=== PATIENT | male | born 1975 | race African-American/Black ===

== ENCOUNTER 2017-05-11 13:50 | Emergency (ER) | payer MEDICAID ==
[2017-05-11 15:18] LABS: HEMATOCRIT 36.7 % (42.0-54.0); HEMOGLOBIN 12.1 g/dL (13.5-17.5); LYMPHOCYTES 15.9 % (15-50); MCH 26.1 pg (26.0-34.0); MCV 79.1 fL (80.0-100.0); MEAN PLATELET VOLUME 10.3 fL (7.4-10.4); NEUTROPHILS 63.4 % (40-80); RBC 4.64 10x6/uL (4.20-6.10); RDW 15.7 % (11.5-14.5); WBC 8.2 10x3/uL (4.8-10.8)
[2017-05-11 15:22] LABS: PLATELET COUNT 158 10x3/uL (130-400)
[2017-05-11 15:35] LABS: ALBUMIN 3.3 g/dL (3.4-5.0); BILIRUBIN - TOTAL 1.1 mg/dL (0.2-1.3); CALCIUM 8.1 mg/dL (8.5-10.1); CARBON DIOXIDE 26.7 mmol/L (21.0-32.0); CREATININE - SERUM 1.3 mg/dL (0.6-1.3); POTASSIUM - SERUM 3.7 mmol/L (3.5-5.1); PROTEIN - SERUM 9.8 g/dL (6.4-8.2)
== END 2017-05-11 17:21 | disposition home or self-care (01) ==
LOC: D.ER 13:50
PROVIDERS: Emergency Medicine
DX: J18.9 Pneumonia, unspecified organism (principal); I10 Essential (primary) hypertension

== ENCOUNTER 2017-10-05 10:50 | Emergency (ER) | payer MEDICAID | END 2017-10-05 11:59 | disposition home or self-care (01) | LOC: D.ER 10:50 | DX: R10.9 Unspecified abdominal pain (principal); I10 Essential (primary) hypertension ==

== ENCOUNTER 2018-04-26 15:51 | Emergency (ER) | payer MEDICAID ==
[~2018-04-26] VITALS: Ht 172.7 cm; Wt 119.5 kg
[2018-04-26 15:53] VITALS: Ht 172.7 cm; Wt 119.5 kg
[2018-04-26] MEDS ORDERED: PRINIVIL10 MG PO (15:56)
[2018-04-26] MEDS ORDERED: NORVASC5 MG PO (15:56)
[2018-04-26] MEDS ORDERED: PRAVACHOL20 MG PO (15:57)
[2018-04-26] MEDS ORDERED: TORADOL10 MG PO (16:58)
[2018-04-26 18:01] VITALS: BP 131/78
[2018-06-29 08:36] VITALS: Ht 172.7 cm; Wt 119.5 kg
== END 2018-04-26 18:02 | disposition home or self-care (01) ==
LOC: D.ER 15:51
DX: M25.562 Pain in left knee (principal); I10 Essential (primary) hypertension

== ENCOUNTER 2018-06-28 17:45 | Observation (INO) | payer MEDICAID ==
[~2018-06-28] VITALS: Ht 172.7 cm; Wt 113.6 kg
--- NOTE | ~2018-06-28 | OP ---
PATIENT NAME: MARIO ALBERTO CASTELLANOS MEDICAL RECORD: [id number] :[birth year] LOCATION:D.M2 D.2139 ADMISSION DATE:06/28/18 SURGEON: PEG ROOT MD DATE OF OPERATION: 06/29/2018 PROCEDURES: 1. Left heart catheterization. 2. Selective coronary angiography. 3. Left ventriculogram. INDICATION: Shortness of breath, elevated troponin, abnormal ECG. PROCEDURE IN DETAIL: After informed consent was obtained and after a detailed description of the risks, benefits as well as alternative therapies, the patient elected to proceed with angiogram and heart catheterization. The right radial area was prepped and draped in normal sterile fashion. Right radial artery was cannulated via modified Seldinger technique with placement of 5-Nigerian sheath. All catheters exchanged through this sheath. FINDINGS: Left ventriculogram was performed in standard 30-degree NAVARRETE view, reveals good cardiac wall motion throughout all segments. Overall ejection fraction estimated 60%. SELECTIVE CORONARY ANGIOGRAPHY: Left main, left anterior descending, left circumflex, right coronary artery are all smooth-walled vessels with no angiographic evidence of coronary artery disease. OVERALL IMPRESSION: 1. No angiographic evidence of coronary artery disease. 2. Normal left heart pressures. 3. Normal left ventricular systolic function, unsure the etiology of his significant shortness of breath. It is not secondary to ischemic heart disease. Evaluate echo and CT angio. TRANSINT:[id number] Voice Confirmation ID: [id number] DOCUMENT ID: [id number] PEG ROOT MD at 1950 CC: [id number] DICTATION DATE: 06/29/18 1212 INFRASTRUCTURE ARCHITECT: 06/29/18 1218 DIS IN 06/30/18 [address] [place] [address]
--- NOTE | ~2018-06-28 | HEMODYNAMI ---
PATIENT:MARIO ALBERTO CASTELLANOS MEDICAL RECORD: [id number] : 79 [facility] D.2139 [id number] ADMISSION DATE: 06/28/18 Generatedon:06/29/201812:10 Patient name: MARIO ALBERTO CASTELLANOS Patient #: [id number] SSN: : 1975 Date of study: 06/29/2018 Page: Of Hemodynamic Procedure Report Patient Data Patient Demographics Procedure consent was obtained First Name: MARIO ALBERTO Gender: Male Last Name: JASMIN : 1975 Patient #: [id number] Age: 42 year(s) Race: Black Additional ID: [id number] Contact details Address: [address] [place] [address] State: [place] City: [facility] Zip code: [address] Past Medical History Allergies: No allergy information Admission Admission Data Admission Date: 06/28/2018 Admission Time: 20:45 Room #: D.2139 Height (in.): 68 BSA: 2.29 (m2) Height (cm.): 172.72 BMI: 39.53 (kg/m2) Weight (lbs.): 260 Weight (kg.): 117.93 Procedure Procedure Types Cath Procedure Diagnostic Procedure [facility] w/Coronaries Procedure Description Procedure Date Procedure Date: 06/29/2018 Procedure Start Time: 12:02 Procedure End Time: 12:09 Procedure Staff Name Function Maycol Molina MD Performing Physician Radha Gonzalez RT Monitor Amaris Thakur RT Scrub Juan Vera RN Nurse Procedure Data Cath Procedure Fluoroscopy Diagnostic fluoroscopy Total fluoroscopy Time: 1 time: 1 min min Diagnostic fluoroscopy Total fluoroscopy dose: 476 dose: 476 mGy mGy Contrast Material Contrast Material Type Amount (ml) Isovue 300 57 Entry Location Entry Primary Successful Side Size Upsize Upsize Entry Closure Aleman ccessful Closure Location (Fr) 1 (Fr) 2 (Fr) Remarks Device Remarks Radial Right 6 Fr Mechanical TR artery Short Compression Estimated blood loss: 10 ml Diagnostic catheters Device Type Used For End Catheter Placement DIAGNOSTIC [place] 110cm 5 Procedure Fr catheter (000465) Procedure Complications No complications Procedure Medications Medication Administration Route Dosage 0.9% NaCl I.V. 100 ml/hr Oxygen etCO2 Nasal cannula 2 l/min Heparin Flush Bag added to field 1 bags (1000units/500ml NS) Lidocaine 2% added to field 20 Radial Cocktail added to field 1 syringe (Verapomil 2mg/Nitro 400mcg/Heparin 1500units) Versed I.V. 2 mg Fentanyl I.V. 100 mcg Versed I.V. 1 mg Radial Cocktail I.A. 1 syringe (Verapomil 2mg/Nitro 400mcg/Heparin 1500units) Hemodynamics Rest BSA: 2.29 (m2) O2 Consumption: Estimated: 302.15 (ml/min) O2 Consumption indexed : Estimated:131.94 (ml/min/m) Heart Rate: 96 (bpm) Snapshots Pre Cath Intra NCS Post Cath Vital Signs Time Heart Resp SPO2 etCO2 NIBP (mmHg) Rhythm Pain Sedation Rate (ipm) (%) (mmHg) Status Level (bpm) 11:19:28 100 26 93 0 153/86(111) NSR 0 (11) 10(A) , No pain 11:23:42 74 16 95 27.1 156/94(123) NSR 0 (11) 10(A) , No pain 11:28:07 74 14 94 29.4 153/74(97) NSR 0 (11) 10(A) , No pain 11:32:21 86 24 93 30.1 133/71(97) NSR 0 (11) 10(A) , No pain 11:37:13 84 24 94 29.3 130/69(89) NSR 0 (11) 10(A) , No pain 11:41:25 85 27 93 27.8 136/78(94) NSR 0 (11) 10(A) , No pain 11:45:39 78 22 95 29.3 121/68(102) NSR 0 (11) 10(A) , No pain 11:49:53 77 19 94 32.4 134/59(84) NSR 0 (11) 10(A) , No pain 11:54:11 75 20 93 33.1 119/63(89) NSR 0 (11) 10(A) , No pain 11:58:25 75 18 93 33.1 129/59(77) NSR 0 (11) 9(A) , No pain 12:02:43 75 19 93 30.8 115/55(87) NSR 0 (11) 9(A) , No pain 12:06:55 75 16 95 31.6 118/55(83) NSR 0 (11) 10(A) , No pain Medications Time Medication Route Dose Verified Delivered Reason Notes Effectiveness by by 11:25:08 0.9% NaCl I.V. 100 Juan Juan Per ml/hr Chuy Vera physician RN RN 11:25:22 Oxygen etCO2 2 l/min Juan Juan Per Nasal Chuy Vera physician cannula RN RN 11:25:48 Heparin Flush added 1 bags Juan Juan used for Bag to Chuy Vera procedure (1000units/500ml field RN RN NS) 11:25:59 Lidocaine 2% added 20ml Juan Juan for local to vial Lorigan Yancyigan anesthetic RN RN 11:26:10 Radial Cocktail added 1 Juan Juan used for (Verapomil to syringe Lorigan Yancyigan procedure 2mg/Nitro field MENENDEZ RN 400mcg/Heparin 1500units) 11:53:49 Versed I.V. 2 mg Ujan Juan for sedation Chuy Vera RN RN 11:53:58 Fentanyl I.V. 100 mcg Juan Juan for sedation Chuy Vera RN RN 12:02:10 Versed I.V. 1 mg Juan Juan for sedation Chuy Vera RN RN 12:02:46 Radial Cocktail I.A. 1 Juan Maycol for (Verapomil syringe Chuy Molina MD vasodilation 2mg/Nitro RN 400mcg/Heparin 1500units) Procedure Log Time Note 11:00:32 Radha Gonzalez RT(R) sent for patient. Start room use. 11:14:40 Time tracking: Regular hours (M-F 7:00 - 5:00) 11:14:46 Plan of Care:Hemodynamics will remain stable., Cardiac rhythm will remain stable., Comfort level will be maintained., Respiratory function will remain adequate., Patient/ family verbilizes understanding of procedure., Procedure tolerated without complication., Recovers from procedure without complications.. 11:14:58 Patient received from PCU to CCL 2 Alert and oriented. Tansferred to table in Supine position. 11:15:01 Warm blankets applied, and daniele hugger turned on for patient comfort. 11:15:01 Correct patient and procedure confirmed by team. 11:15:03 Signed procedure consent form obtained from patient. 11:15:04 ECG and BP/O2 sat monitors applied to patient. 11:15:07 Full Disclosure recording started 11:18:24 Vital chart was started 11:18:29 Baseline sample Acquired. 11:18:39 Rhythm: sinus rhythm 11:18:51 H&P Date Dictated: 06/28/2018 Within 30 days and on chart.. 11:18:53 Pre-procedure instructions explained to patient. 11:18:55 Family unavailable. 11:18:57 Patient NPO since Midnight. 11:19:05 Patient allergic to No allergy information 11:19:08 Is the patient allergic to Iodine/contrast media? No. 11:19:09 Was the patient premedicated? Yes 11:19:12 Is patient on blood thinner?No 11:19:15 Patient diabetic? No. 11:19:19 Snore? No 11:19:21 Sleep apnea? No 11:19:29 Airway obstruction? No SOB 11:19:33 Dentures? No ? 11:19:38 Patient pain scale 0/10 ?. 11:19:45 IV patent on arrival in left hand with 0.9% NaCl at O. 11:19:52 Lab results completed and on chart. 11:19:56 Right Radial & Right Groin area was prepped with chlora-prep and draped in sterile fashion 11:19:57 Alarms reviewed by R. N. 11:19:58 Sharps counted by scrub and verified by R.N. 11:19:59 Physician paged 11:21:24 Use device set Radial Dx or PCI 11:21:25 ACIST Syringe (96516) opened to sterile field. 11:21:25 Medline Cath Pack ([id number]) opened to sterile field. 11:21:26 Bag Decanter (2002) opened to sterile field. 11:21:26 DIAGNOSTIC WIRE .035 260cm J wire (184130) opened to sterile field. 11:21:28 Tegaderm 4 x 4 (1626W) opened to sterile field. 11:21:29 MBrace Wrist Support ([id number]) opened to sterile field. 11:21:30 NEEDLE Cook 21G 4cm Radial ([id number]) opened to sterile field. 11:21:33 SHEATH 6Fr Prelude Radial ([id number]) opened to sterile field. 11:25:08 0.9% NaCl 100 ml/hr I.V. was administered by Juan Vera RN; Per physician; 11:25:22 Oxygen 2 l/min etCO2 Nasal cannula was administered by Juan Vera RN; Per physician; 11:25:48 Heparin Flush Bag (1000units/500ml NS) 1 bags added to field was administered by Juan Vera RN; used for procedure; 11:25:59 Lidocaine 2% 20ml vial added to field was administered by Juan Vera RN; for local anesthetic; 11:26:10 Radial Cocktail (Verapomil 2mg/Nitro 400mcg/Heparin 1500units) 1 syringe added to field was administered by Juan Vera RN; used for procedure; 11:27:53 Patient Height : 68 inches 11:28:05 Patient Weight : 260 lbs 11:36:54 Zero performed for pressure channel P1 11:53:02 Physician arrived 11:53:04 --------ALL STOP TIME OUT------ 11:53:05 Final Timeout: patient, procedure, and site verified with staff and physician. All members of the team are in agreement. 11:53:09 Right Radial & Right Groin site verified by team. 11:53:15 Physical assessment completed. ASA score P 2 - A patient with mild systemic disease as per Maycol Molina MD. 11:53:19 Sedation plan: IV Moderate Sedation Medication:Versed, Fentanyl 11:53:49 Versed 2 mg I.V. was administered by Juan Vera RN; for sedation; 11:53:58 Fentanyl 100 mcg I.V. was administered by Juan Vera RN; for sedation; 12:01:41 Procedure started. 12:02:10 Versed 1 mg I.V. was administered by Juan Vera RN; for sedation; 12:02:11 Local anesthetic to right radial artery with Lidocaine 2% by Maycol Molina MD.INITIAL ACCESS ONLY 12:02:21 A 6 Fr Short sheath was inserted into the Right Radial artery 12:02:46 Radial Cocktail (Verapomil 2mg/Nitro 400mcg/Heparin 1500units) 1 syringe I.A. was administered by Maycol Molina MD; for vasodilation; 12:03:20 A DIAGNOSTIC [place] 110cm 5 Fr catheter (038793) was advanced over the wire and used for Procedure. 12:03:50 LV angiography performed. 12:04:28 EF : 60 % 12:04:39 LCA angiography performed. 12:05:48 RCA angiography performed. 12:06:27 TR BAND Standard (EPD44LVH) opened to sterile field. 12:06:32 Catheter removed. 12:07:07 Sheath removed intact; hemostasis achieved with Mechanical Compression to the Right Radial artery. 12:07:10 Procedure ended.(Physican Out) 12:07:32 Fluoroscopy time 01.00 minutes. 12:07:37 Fluoroscopy dose: 476 mGy 12:07:37 Flurop Dose total: 476 12:07:41 Contrast amount:Isovue 300 57ml. 12:07:43 Sharps counted by scrub and verified by R.N. 12:07:46 TR band inflated with 12cc of air. 12:07:50 Insertion/operative site no bleeding no hematoma. 12:08:47 Post Procedure Pulses reassessed and unchanged 12:08:51 Post-procedure physical assessment completed. ASA score P 2 - A patient with mild systemic disease as per Maycol Molina MD. 12:08:54 Post procedure rhythm: sinus rhythm 12:08:56 Estimated blood loss: 10 ml 12:08:58 Post procedure instruction explained to patient.Patient verbalizes understanding. 12:09:04 Procedure and supply charges have been captured, reviewed, submitted and are correct. 12:09:26 Procedure Complication : No complications 12:09:28 Vital chart was stopped 12:09:30 See physician's report for complete and final results. 12:09:34 Report given to Med II. 12::37 Patient transfered to Med II with Bed. 12::41 Procedure ended. 12::41 Full Disclosure recording stopped 12::44 End room use (Document Last) Device Usage Item Name Manufacture Quantity Catalog Number Hospital Part Current M inimal Lot# / Charge Number Stock Stock Serial# Code ACIST Syringe Acist 1 86034 119289 377974 [id number] 2 0 (25941) Medical Systems Inc Medline Cath Cardinal 1 [id number] 059376 79461 321434 5 Pack Health ([id number]) Bag Decanter Microtek 1 2001S 602547 49249 460114 5 (2001S) Medical Inc. DIAGNOSTIC WIRE [facility] [place] 1 583629 709013 204406 158758 3 0 .035 260cm J wire (427957) Tegaderm 4 x 4 3M 1 1626W 024800 591359 858386 5 (1626W) MBrace Wrist Advanced 1 140-0250-00 351074 25860 819800 5 Support Vascular ([id number]) Dynamics NEEDLE Cook 21G Cook Medical 1 X40010 968274 428530 207758 5 4cm Radial (V10546) SHEATH 6Fr Merit 1 [id number] 028199 440112 194582 5 Prelude Radial Medical ([id number]) DIAGNOSTIC Terumo 1 40-8902 776061 957350 280599 5 [place] 110cm 5 Fr catheter (891293) TR BAND Terumo 1 [id number] 602986 664235 945073 4 0 Standard ([id number]) Signature Audit [place] Stage Time Signature Unsigned Intra-Procedure 06/29/2018 Radha Gonzalez 12:10:15 PM RT(R) Signatures Monitor : Radha Gonzalez Signature : RT Date : Time : [address] [place] [address]
--- NOTE | ~2018-06-28 | DS ---
PATIENT:MARIO ALBERTO HADDAD :79 MEDICAL RECORD: [id number] DISCHARGE SUMMARY ADMISSION DATE: 06/28/18 DISCHARGE DATE: 06/30/18 DIAGNOSIS: Shortness of breath. Mr. Haddad presents with shortness of breath. He underwent cardiac catheterization, this was normal. He underwent CTA, this was normal. Underwent echocardiogram, this was normal. He has no cardiovascular etiology of his shortness of breath. Heart rate and blood pressure remained optimal during the hospital stay. This time, there is no reason to believe his symptomatology is cardiac. Further care will be taken by his primary care as an outpatient. TRANSINT:[id number] Voice Confirmation ID: [id number] DOCUMENT ID: [id number] PEG ROOT MD at 1950 CC: [id number] DICTATION DATE: 06/30/18 1007 PIGS FEET FINISHER: 06/30/18 1021 DIS IN 06/30/18 [address] [place] [address]
--- NOTE | ~2018-06-28 | EC ---
PATIENT:MARIO ALBERTO CASTELLANOS DATE OF SERVICE: 06/28/18 SEX: M MEDICAL RECORD: [id number] DATE OF : [birth year] LOCATION:D.M2 D.213 AGE OF PATIENT: 42 ADMISSION DATE: 06/28/18 REFERRING PHYSICIAN: INTERPRETING PHYSICIAN: PEG MOLINA MD ECHOCARDIOGRAM REPORT ECHO CHARGES 4 ECHO COMPLETE Date: 06/29/18 CLINICAL DIAGNOSIS: CHF ECHOCARDIOGRAPHIC MEASUREMENTS (adult normal given) AC root (d.<3.7cm) 2.6 cm LV Septum d (<1.2 cm> 1.5 cm Valve Excursion 1.3 cm LV Septum (systole) 1.6 cm Left Atria (s.<4.0cm> 4.2 cm LVPW d(<1.2cm) 1.4 cm RV (d.<2.3cm) 2.9 cm LVPW (sytole) 2.3 cm LV diastole(<5.6CM) 4.5 cm MV E-F(>70mm/sec) cm LV systole 3.4 cm LVOT Diameter 1.9 cm MV exc.(>10mm) cm Est.ejection fraction (50-75%) % DOPPLER: LVIT cm/sec A 47 cm/sec E 75 cm/sec LA cm/sec RVSP 19.6 mmHg LVOT 142 cm/sec AOP1/2T m/s Asc. Ao 184 cm/sec RVOT 90 cm/sec RA cm/sec PA 81 cm/sec AV Gradient Peak 13.5 mmHg AV Mean 6.2 mmHg AV Area 2.3 cm MV Gradient Peak 3.9 mmHg MV Mean 2.1 mmHg MV Area cm COMMENTS: Recreation Therapy Teacher: [facility] Hospital Librarian: 1 Dr. Molina TAPE# PACS Pericardial Effusion N DATE OF SERVICE: 06/29/2018 PROCEDURE: Echocardiogram. FINDINGS: 1. Left ventricular chamber size is within normal limits. Left ventricular systolic function is normal. Overall ejection fraction estimated at 55%. 2. Left atrium is within normal limits at 4.0 cm. Right atrium and right ventricle chamber sizes are mildly dilated. 3. Valvular structures have normal structure and motion. ECHOCARDIOGRAM REPORT [id number] MARIO ALBERTO CASTELLANOS 4. Doppler interrogation reveals trace tricuspid regurgitation, no other valvular insufficiency or stenosis and pulmonary systolic pressure is normal estimated at 20 mmHg. 5. No evidence of pericardial effusion or left ventricular thrombus. TRANSINT:[id number] Voice Confirmation ID: [id number] DOCUMENT ID: [id number] PEG MOLINA MD at 1950 CC: [id number] DICTATION DATE: 06/29/18 1546 PICKER OPERATOR: 06/29/18 1552 DIS IN 06/30/18 [facility] [id number]
[~2018-06-28 17:45] MED LIST: NORVASC5 MG PO; PRAVACHOL20 MG PO; PRINIVIL10 MG PO; TORADOL10 MG PO
[2018-06-28 18:24] LABS: BASOPHILS 0.3 % (0-2); EOSINOPHILS 0.5 % (0-7); HEMATOCRIT 34.8 % (42.0-54.0); HEMOGLOBIN 11.8 g/dL (13.5-17.5); IMMATURE GRANULOCYTES 0.5 % (0-5); LYMPHOCYTES 14.7 % (15-50); MCH 26.8 pg (26.0-34.0); MCHC 33.9 g/dL (31.0-37.0); MCV 78.9 fL (80.0-100.0); MEAN PLATELET VOLUME 10.2 fL (7.4-10.4); MONOCYTES 18.2 % (2-11); NEUTROPHILS 65.8 % (40-80); PLATELET COUNT 165 10x3/uL (130-400); RBC 4.41 10x6/uL (4.20-6.10); RDW 14.6 % (11.5-14.5); WBC 10.9 10x3/uL (4.8-10.8)
[2018-06-28 18:47] LABS: ANION GAP 11.6 mmol/L (8-16); BILIRUBIN - TOTAL 1.11 mg/dL (0.2-1.3); CALCIUM 7.7 mg/dL (8.5-10.1); CARBON DIOXIDE 23.9 mmol/L (21.0-32.0); CREATININE - SERUM 1.3 mg/dL (0.6-1.3); POTASSIUM - SERUM 3.5 mmol/L (3.5-5.1); PROTEIN - SERUM 9.5 g/dL (6.4-8.2)
[2018-06-28 19:13] LABS: TROPONIN-I 1.282 ng/mL (0.000-0.060)
[2018-06-28 19:50] VITALS: BP 141/76
[2018-06-28 20:00] VITALS: BP 151/81
[2018-06-28 20:11] LABS: CKMB 1.8 U/L (0.0-3.6); CREATINE KINASE 1686 UL (21-232); PRO BNP 862 pg/mL (0-125)
[2018-06-28 20:31] LABS: % SATURATION 11 % (15-55); IRON 21 ug/dl (35-150); TOTAL IRON BIND CAPACITY 177 ug/dl (260-445); UNSAT IRON BIND CAPACITY 156 ug/dl (150-375)
[2018-06-28 21:00] VITALS: BP 149/83
[2018-06-28 21:55] LABS: CREATINE KINASE 1613 UL (21-232)
[2018-06-28 21:56] LABS: TROPONIN-I 1.238 ng/mL (0.000-0.060)
[2018-06-28 21:57] LABS: CKMB 1.6 U/L (0.0-3.6)
[2018-06-28 23:14] VITALS: BP 149/78; BMI 38.1
[2018-06-29 03:13] LABS: CKMB 2.1 U/L (0.0-3.6); CREATINE KINASE 1444 UL (21-232); TROPONIN-I 1.373 ng/mL (0.000-0.060)
[2018-06-29 04:00] VITALS: BP 145/73
[2018-06-29 08:08] VITALS: BP 154/83
[2018-06-29 08:36] VITALS: Ht 172.7 cm; Wt 113.6 kg
[2018-06-29 09:29] LABS: BASOPHILS 0.2 % (0-2); EOSINOPHILS 0.3 % (0-7); HEMATOCRIT 35.8 % (42.0-54.0); HEMOGLOBIN 12.2 g/dL (13.5-17.5); IMMATURE GRANULOCYTES 0.3 % (0-5); LYMPHOCYTES 14.5 % (15-50); MCH 26.7 pg (26.0-34.0); MCHC 34.1 g/dL (31.0-37.0); MCV 78.3 fL (80.0-100.0); MEAN PLATELET VOLUME 10.3 fL (7.4-10.4); MONOCYTES 12.3 % (2-11); NEUTROPHILS 72.4 % (40-80); PLATELET COUNT 168 10x3/uL (130-400); RBC 4.57 10x6/uL (4.20-6.10); RDW 14.6 % (11.5-14.5); WBC 9.7 10x3/uL (4.8-10.8)
[2018-06-29 10:05] LABS: CALC OSMOLALITY 262 mosm/kg (275-300); CALCIUM 7.7 mg/dL (8.5-10.1); CARBON DIOXIDE 24.4 mmol/L (21.0-32.0); CHLORIDE - SERUM 98 mmol/L (98-107); CKMB 1.6 U/L (0.0-3.6); CREATININE - SERUM 1.1 mg/dL (0.6-1.3); GLUCOSE 100 mg/dL (74-106); POTASSIUM - SERUM 3.5 mmol/L (3.5-5.1); SODIUM 131 mmol/L (136-145); UREA NITROGEN 12 mg/dL (7-18); eGFR NON AFRICAN AMERICAN 79 mL/min (90-120)
[2018-06-29 10:06] LABS: CREATINE KINASE 1379 UL (21-232); TROPONIN-I 1.399 ng/mL (0.000-0.060)
[2018-06-29 11:00] VITALS: BP 147/78
[2018-06-29 15:50] VITALS: BP 128/75
[2018-06-29 20:14] VITALS: BP 163/87
[2018-06-30 00:19] VITALS: BP 116/53
[2018-06-30 04:00] VITALS: BP 116/60
[2018-06-30 07:50] VITALS: BP 124/59
[2018-06-30 10:50] VITALS: BP 123/68
[2018-06-30 18:11] LABS: SPE - A/G RATIO 0.5 (0.7-1.7); SPE - ALBUMIN 3.4 g/dL (2.9-4.4); SPE - ALPHA-1 GLOBULIN 0.5 g/dL (0.0-0.4); SPE - ALPHA-2 GLOBULIN 1.3 g/dL (0.4-1.0); SPE - BETA GLOBULIN 0.9 g/dL (0.7-1.3); SPE - GAMMA GLOBULIN 4.1 g/dL (0.4-1.8); SPE - M-SPIKE 3.2 g/dL (Not Observed); SPE - TOTAL PROTEIN 10.2 g/dL (6.0-8.5)
== END 2018-06-30 13:44 | disposition home or self-care (01) ==
LOC: D.ER 17:45 → D.M2 20:45 → OBSVTIME 20:45 → D.M2 20:45
PROVIDERS: Emergency Medicine; Internal Medicine Interventional Cardiology
DX: R06.02 Shortness of breath (principal); R79.89 Other specified abnormal findings of blood chemistry; R94.31 Abnormal electrocardiogram [ECG] [EKG]; I10 Essential (primary) hypertension; E78.5 Hyperlipidemia, unspecified; R50.9 Fever, unspecified

== ENCOUNTER 2018-12-29 15:55 | Emergency (ER) | payer MEDICAID ==
[~2018-12-29] VITALS: Ht 172.7 cm; Wt 120.5 kg
[2018-12-29 16:10] VITALS: Ht 172.7 cm; Wt 120.5 kg
[2018-12-29 17:05] LABS: BASOPHILS 0.7 % (0-2); EOSINOPHILS 5.1 % (0-7); HEMATOCRIT 39.4 % (42.0-54.0); HEMOGLOBIN 13.3 g/dL (13.5-17.5); IMMATURE GRANULOCYTES 0.3 % (0-5); LYMPHOCYTES 37.8 % (15-50); MCH 27.3 pg (26.0-34.0); MCHC 33.8 g/dL (31.0-37.0); MCV 80.9 fL (80.0-100.0); MEAN PLATELET VOLUME 9.9 fL (7.4-10.4); MONOCYTES 16.6 % (2-11); NEUTROPHILS 39.5 % (40-80); PLATELET COUNT 201 10x3/uL (130-400); RBC 4.87 10x6/uL (4.20-6.10); WBC 5.9 10x3/uL (4.8-10.8)
[2018-12-29 17:18] LABS: ALBUMIN 3.3 g/dL (3.4-5.0); ALKALINE PHOSPHATASE 86 U/L (46-116); ALT (SGPT) 48 U/L (10-68); AMYLASE - SERUM 67 U/L (25-115); BILIRUBIN - TOTAL 0.98 mg/dL (0.2-1.3); CALC OSMOLALITY 274 mosm/kg (275-300); CALCIUM 8.1 mg/dL (8.5-10.1); CARBON DIOXIDE 29.9 mmol/L (21.0-32.0); CHLORIDE - SERUM 103 mmol/L (98-107); CREATININE - SERUM 1.1 mg/dL (0.6-1.3); GLUCOSE 75 mg/dL (74-106); LIPASE 134 U/L (73-393); POTASSIUM - SERUM 3.5 mmol/L (3.5-5.1); PROTEIN - SERUM 10.2 g/dL (6.4-8.2); SODIUM 138 mmol/L (136-145); UREA NITROGEN 12 mg/dL (7-18); eGFR NON AFRICAN AMERICAN 78 mL/min (90-120)
[2018-12-29 18:39] LABS: APPEARANCE CLEAR (CLEAR); BILIRUBIN NEGATIVE (NEGATIVE); COLOR YELLOW (YELLOW); GLUCOSE NEGATIVE (NEGATIVE); KETONE NEGATIVE (NEGATIVE); NITRITE NEGATIVE (NEGATIVE); PROTEIN NEGATIVE (NEGATIVE); UROBILINOGEN NORMAL (NORMAL)
[2018-12-29] MEDS ORDERED: PROTONIX40 MG PO (18:50)
[2018-12-29 18:59] LABS: UDS - AMPHET NEGATIVE QUAL (NEGATIVE); UDS - BARB NEGATIVE QUAL (NEGATIVE); UDS - BENZO NEGATIVE QUAL (NEGATIVE); UDS - COCAINE NEGATIVE QUAL (NEGATIVE); UDS - OPIATE NEGATIVE QUAL (NEGATIVE); UDS - PCP NEGATIVE QUAL (NEGATIVE); UDS - THC NEGATIVE QUAL (NEGATIVE)
[2018-12-29 20:33] VITALS: BP 160/93
== END 2018-12-29 20:51 | disposition home or self-care (01) ==
LOC: D.ER 15:55
PROVIDERS: Family Medicine
DX: K29.70 Gastritis, unspecified, without bleeding (principal); R10.9 Unspecified abdominal pain; I10 Essential (primary) hypertension; E78.5 Hyperlipidemia, unspecified; K21.9 Gastro-esophageal reflux disease without esophagitis

== ENCOUNTER 2019-01-18 12:56 | Emergency (ER) | payer MEDICAID ==
[~2019-01-18] VITALS: Ht 172.7 cm; Wt 117.7 kg
[~2019-01-18 12:56] MED LIST changes: +PROTONIX40 MG PO
[2019-01-18 13:09] VITALS: Ht 172.7 cm; Wt 117.7 kg
[2019-01-18 14:54] LABS: APPEARANCE CLEAR (CLEAR); BILIRUBIN NEGATIVE (NEGATIVE); COLOR YELLOW (YELLOW); GLUCOSE NEGATIVE (NEGATIVE); KETONE NEGATIVE (NEGATIVE); NITRITE NEGATIVE (NEGATIVE); PROTEIN NEGATIVE (NEGATIVE); SPECIFIC GRAVITY 1.015 (1.005-1.020); UROBILINOGEN NORMAL (NORMAL)
[2019-01-18] MEDS ORDERED: IBUPROFEN800 MG PO (15:29)
[2019-01-18] MEDS ORDERED: ROBAXIN500 MG PO (15:29)
[2019-01-18 15:37] VITALS: BP 153/87
== END 2019-01-18 15:38 | disposition home or self-care (01) ==
LOC: D.ER 12:56
PROVIDERS: Family Medicine
DX: M54.5 Low back pain (principal)

== ENCOUNTER 2019-03-04 15:49 | Emergency (ER) | payer MEDICAID ==
[~2019-03-04] VITALS: Ht 172.7 cm; Wt 118.2 kg
[~2019-03-04 15:49] MED LIST changes: +IBUPROFEN800 MG PO; +ROBAXIN500 MG PO
[2019-03-04 15:55] VITALS: Ht 172.7 cm; Wt 118.2 kg
[2019-03-04 16:31] LABS: APPEARANCE CLEAR (CLEAR); BILIRUBIN NEGATIVE (NEGATIVE); COLOR YELLOW (YELLOW); GLUCOSE NEGATIVE (NEGATIVE); KETONE NEGATIVE (NEGATIVE); NITRITE NEGATIVE (NEGATIVE); PROTEIN NEGATIVE (NEGATIVE); UROBILINOGEN NORMAL (NORMAL)
[2019-03-04] MEDS ORDERED: ULTRAM50 MG PO (16:52)
[2019-03-04 17:14] VITALS: BP 128/74
== END 2019-03-04 17:16 | disposition home or self-care (01) ==
LOC: D.ER 15:49
PROVIDERS: Family Medicine
DX: M12.9 Arthropathy, unspecified (principal)

== ENCOUNTER → 2019-05-24 08:31 | Outpatient (CLI) | payer MEDICAID ==
[2019-03-04 15:55] VITALS: BMI 39.6
[~2019-05-24 08:31] MED LIST changes: +ULTRAM50 MG PO
== END | disposition home or self-care (01) ==
LOC: D.US 08:31
PROVIDERS: ATTEND Emergency Medicine
DX: R94.5 Abnormal results of liver function studies (principal)

== ENCOUNTER → 2019-08-22 12:40 | Outpatient (CLI) | payer MEDICAID ==
[2019-03-04 15:55] VITALS: BMI 39.6
== END | disposition home or self-care (01) ==
LOC: D.US 07-18 08:00
PROVIDERS: ATTEND Emergency Medicine
DX: R74.8 Abnormal levels of other serum enzymes (principal)